=== PATIENT | male | born 1965 | race Caucasian/White ===

== ENCOUNTER 2017-10-19 10:40 | Emergency (ER) | payer MEDICAID, SELFPAY ==
[2017-10-19 10:41] VITALS: BP 201/116; PULSE 67; RESP 18; TEMP 35.7; O2SAT 99; BMI 26.9
[2017-10-19 12:08] VITALS: BP 142/102; PULSE 69
--- NOTE | 2017-10-19 12:41 | ED.DCSUM_ITS ---
- ER Visit Summary Date of Service: 10/19/17 Chief Complaint: Right ear pain History of Present Illness: The patient is a 52 M who states that for the past 2 weeks he has had intermittent right ear pain. He states now it is hurting worse. He states he has lost hearing in the ear. He notes no nasal congestion or rhinorrhea. No fevers. Physical Examination: There is extensive cerumen impaction from the outer ear to the tympanic membrane. Once removed the ear canal itself is erythematous. Tympanic membrane is intact. His hearing is improved. Emergency Department Course and Treatment: Large cerumen was removed using warm water ear johnson, Colace, and alligator forceps. Patient was placed on Cortisporin otic. He will follow-up with primary care return if worsening. He was advised that his blood pressure has been elevated today and he should discuss his blood pressure with his doctor. Impression: 1. Right cerumen impaction 2. Right otitis externa This note was generated with [employer] dictation software. It may contain incorrect words, spelling, and punctuation that were not noted in review of the chart prior to signing ED Disposition - Plan for ED Patient: Disposition: Home or Assisted Living Chief Complaint: Ear Problem Instructions: ED Cerumen Impaction Treated, ED Otitis Externa Referrals: Uzair Collazo MD [STAFF PHYSICIAN] - (call to arrange ENT follow up) Additional Instructions: Please follow-up with primary care to discuss hypertension. (Elevated blood pressure) Cortisporin eardrops are 4 drops every 8 hours for the next 5 days.
[2017-10-19] MEDS: Neomycin Sulfate/Polymyxin/Hc Susp 10 ML Bottle 4 DRP OTIC (12:52)
[2017-10-19 12:55] VITALS: BP 138/101; PULSE 63; RESP 16; O2SAT 95
== END 2017-10-19 12:58 | disposition home or self-care (01) ==
PROVIDERS: Emergency Provider Emergency Medicine
DX: H60.91 Unspecified otitis externa, right ear (principal); H61.21 Impacted cerumen, right ear; N40.0 Benign prostatic hyperplasia without lower urinary tract symptoms; Z86.79 Personal history of other diseases of the circulatory system; Z79.899 Other long term (current) drug therapy; Z72.0 Tobacco use
CPT/HCPCS: 99282